=== PATIENT | female | born 1990 | race Caucasian/White ===

== ENCOUNTER 2018-10-19 08:11 | Outpatient (CLI) | payer OTHER ==
[~2018-10-19] VITALS: Ht 160 cm; Wt 67.3 kg
[2018-10-19 08:16] VITALS: Ht 160 cm; Wt 67.3 kg
[2018-10-19 08:17] VITALS: BP 132/75; PULSE 92; RESP 18
--- NOTE | 2018-10-19 08:59 | PREOPHP ---
DATE OF ADMISSION: 10/19/2018 HISTORY OF PRESENT ILLNESS: Ms. Verito Fountain is a 28-year-old 1, para 0, EDC 12/12/2018 in trauterine at 32 weeks and 2 days gestational age, presented to triage complaining of decre ased movement since last night. She had a biophysical profile which was 8/8 with an [place] of pineda roximately 8. She currently reports that she has movement. She denies any contractions, vagin al bleeding, or discharge. Her care took place with Dr. Juarez. PAST MEDICAL HISTORY: None. MEDICATIONS: vitamins. PAST SURGICAL HISTORY: None. OBSTETRIC HISTORY: Prima . GYNECOLOGIC HISTORY: 12, regular 3 to 4 days. She denies any sexually transmitted infection. Sexua lly active with 1 partner. SOCIAL HISTORY: She denies any smoking, drugs or alcohol. FAMILY HISTORY: None. REVIEW OF SYSTEMS: All within normal except history of present illness. PHYSICAL EXAMINATION: VITAL SIGNS: Blood pressure 132/75, pulse 92, respirations 18, temperature 98.4. HEENT: Within normal. LUNGS: CTA bilateral. CARDIOVASCULAR: S1, S2, regular rhythm. ABDOMEN: Gravid, nontender. Negative CVA bilateral. EXTREMITIES: Negative edema. No calf tenderness. PELVIC: Vaginal exam deferred. heart tracing category 1. Tocometer no contractions. ASSESSMENT: Intrauterine at 32 weeks and 2 days gestational age with reassuring hear t tracing/category 1 with positive movement. PLAN: Discharge home today. The patient will follow up with Dr. Juarez, has an appointment at ap proximately 4:00 this afternoon. Recommend to repeat the ultrasound and biophysical profile in 2 day s. Dictated By: MADHU REED MD ME/NTS Conf#: [id number] DID#: [id number] CC: MADHU REED MD;*EndCC*
--- NOTE | 2018-10-19 09:07 | TRIAGE ---
OB Triage Datetime Report Generated by CPN: 10/19/2018 09:07 Datetime: 10/19/2018 09:04 Labor Evaluation Duration (sec)2399: 30-40 Pattern: Normal: <= 5 Contractions in 10 Minutes Resting Tone [place]: Relaxed Contraction Comments: irritability Heart Rate FHR Baseline Rate: 135 Monitor Mode: External US Variability: Moderate 6-25 bpm Accelerations: 15X15 Decelerations: None Category: Category I Comments: reactiven nst Pain Assessment Pain Presence: None/Denies Pain Type: N/A Datetime: 10/19/2018 08:15 Assessment Type: Triage Maternal Assessment Level of Consciousness: Fully Conscious DTR's/Clonus: DTRs 2+; No Clonus Headache: Denies Blurred Vision: No Respiratory Effort: Unlabored; Regular Rhythm; Equal Expansion Breath Sounds, Left: Clear and Equal Breath Sounds, Right: Clear and Equal Nausea/Vomiting: Denies RUQ Epigastric Pain: Denies Lower Extremities Edema: None Degree: None Upper Extremities Edema: None Degree: None Facial Edema: None Fall Risk Assessment History of Falling: (0) No Secondary Diagnosis: (0) No Ambulatory Aid: (0) Bedrest/Nurse Assist IV Therapy: (0) No Gait: (0) Normal/Bedrest/Immobile Mental Status: (0) Oriented to Own Ability Fall Score: 0 Fall Risk Score Definition: No Risk: No action required Datetime: 10/19/2018 08:14 Time of Arrival: 10/19/2018 08:01 EGA: 32.2 Arrived By: Ambulatory Arrived From: Home Chief Complaint: C/O Decreased fm Movement: Decreased Contractions: Denies/Absent Rupture of Membranes: Denies Vaginal Bleeding: None Vaginal Discharge: Denies Recent Sexual Intercouse: Denies Abdominal Trauma: Not Applicable Patient Complaints: Other Time Provider Notified: 10/19/2018 08:25 Provider Notified: Initial Plan: medhatt, cassie
== END 2018-10-19 09:16 | disposition home or self-care (01) ==
LOC: OBT 08:11 → L-D 08:13 → OBT 09:16 → UNDOADMIN 09:48 → L-D 09:48
PROVIDERS: ATTEND Obstetrics & Gynecology
DX: O36.8130 Decreased fetal movements, third trimester, not applicable or unspecified (principal); Z3A.32 32 weeks gestation of pregnancy
CPT/HCPCS: 76818; G0463

== ENCOUNTER 2018-12-03 11:04 | Inpatient (IN) | payer OTHER ==
[~2018-12-03] VITALS: Ht 160 cm; Wt 71.2 kg
[2018-12-03 11:14] VITALS: BP 120/67; PULSE 78; Ht 160 cm; Wt 71.2 kg
[2018-12-03] MEDS ORDERED: PNV11TAB PO (11:15)
[2018-12-03] MEDS ORDERED: AMPICILLIN 2 GM/NS (PMX) 100 ML IV ONE (11:30)
[2018-12-03] MEDS ORDERED: OXYTOCIN 30 UNITS/LR 500 ML IV PRN ×2 (11:30→18:00)
[2018-12-03] MEDS ORDERED: METHYLERGONOVINE 0.2 MG INJ IM PRN ×2 (11:30→18:00)
[2018-12-03] MEDS ORDERED: CARBOPROST 250 MCG INJ IM PRN ×2 (11:30→18:00)
[2018-12-03] MEDS ORDERED: OXYTOCIN 30 UNITS/LR 500 ML IV SCH ×3 (11:30→17:42)
[2018-12-03] MEDS ORDERED: MISOPROSTOL 200 MCG TAB PR PRN ×2 (11:30→18:00)
[2018-12-03] MEDS ORDERED: BUTORPHANOL 2 MG INJ IV PRN ×2 (11:30)
[2018-12-03] MEDS ORDERED: LIDOCAINE 1% (MPF) 30 ML INJ INJ PRN (11:30)
[2018-12-03] MEDS: LACTATED RINGER'S 1,000 ML IV SCH (11:51)
--- NOTE | 2018-12-03 12:12 | HP ---
Date/Time of Note Date/Time of Note DATE: 12/03/18 TIME: 12:09 OB - History Hx of Present Free Text/Dictation History of present illness: 28-year-old G1 at 38 and 5 day presents with contractions since 0330. Denies lof or vb. Obstetric history: primip Gynecology: Last menstrual period approximately 03/07/18 FREDERICK: 12/12/2018 Past medical history: none Surgical history: none Family history: none Social history: negative for tobacco/all/recreational drugs Allergies: no known drug allergies Medications: vitamins Physical exam Vitals: Stable General: No apparent distress Cardiovascular: Regular rate and rhythm Pulmonary: Clear to auscultation bilaterally Abdomen: Gravid Uterus: Milton's 3600 g vertex Extremities: Nontender to palpation Psychological: Alert oriented EFM: Category I 130/mod johana/+accels/no decels labs: O + H/H 12.1/37.4 Rubella immune Hepatitis B surface antigen nonreactive HIV negative Gonorrhea chlamydia negative GBS unknown Assessment/plan: 1. Labor-admit to labor and delivery. Routine labs and vitals. Continuous e lectronic monitor and tocometer. Epidural upon patient request but she currently would like to refrain from using any sort of analgesia. 2. AZIZA-expectant. negative integrated screen. Past Family/Social History * Past Medical, Surgical, Family and Obstetric Histories reviewed from chart. OB Admission Exam Vital Signs Vital Signs Vital Signs Date Temp Pulse Resp B/P (MAP) Pulse Ox O2 O2 Flow FiO2 Time Delivery Rate 12/03/18 98.0 78 120/67 11:14 (84) KEVIN RICHEY MD Dec 03, 2018 12:12
[2018-12-03] MEDS ORDERED: AMPICILLIN 1 GM/NS (PMX) 50 ML IV SCH (15:30)
[2018-12-03] MEDS ORDERED: HYDROmorphONE 0.5 MG/0.5 ML SYG IV STA ×2 (17:00→17:13)
--- NOTE | 2018-12-03 17:48 | LDN ---
Date/Time of Note Date/Time of Note DATE: 12/03/18 TIME: 17:48 Delivery Summary Spontaneous vaginal delivery of a term female infant in OA presentation weighing 3990 g with Apgars 9/9 at 1/5 minutes respectively.. Mouth and nares bulb suctioned. Cord clamped x2 and divided between the clamps. Blood collected. Placenta delivered spontaneously and intact with vessel cord. Second-degree perineal laceration repaired with 2-0 Monocryl. Cervix without any lacerations. Fundus firm. Hemostasis noted. Anesthesia: 1% local lidocaine Analgesics: 0.6 mg IV Dilaudid Estimated blood loss: 500 mL Complications: none KEVIN RICHEY MD Dec 03, 2018 17:48
[2018-12-03] MEDS ORDERED: METHYLERGONOVINE 0.2 MG TAB PO PRN (18:00)
[2018-12-03] MEDS ORDERED: ZOLPIDEM 5 MG TAB PO PRN (18:00)
[2018-12-03] MEDS ORDERED: NACL 0.9% 3 ML SYG IV SCH (18:00)
[2018-12-03] MEDS: IBUPROFEN 600 MG TAB PO SCH ×2 (18:00→23:41)
[2018-12-03] MEDS ORDERED: MAGNESIUM HYDROXIDE 30ML CUP PO PRN (18:00)
[2018-12-03] MEDS ORDERED: WITCH HAZEL/GLYCERIN PAD PR PRN (18:00)
[2018-12-03] MEDS ORDERED: BENZOCAINE 20% 56 ML SPRAY TOP PRN (18:00)
[2018-12-03] MEDS ORDERED: DIBUCAINE 1% 30 GM OINT TOP PRN (18:00)
[2018-12-03 20:00] VITALS: BP 114/56; PULSE 73; RESP 18
[2018-12-03] MEDS: SENNA/DOCUSATE NA (8.6MG/50MG) TAB PO SCH (20:48)
[2018-12-03] MEDS: LANOLIN HPA 1 PKT TOP PRN (20:49)
[2018-12-04 04:23] VITALS: BP 98/54; PULSE 76; RESP 18
[2018-12-04] MEDS: IBUPROFEN 600 MG TAB PO SCH ×4 (05:34→23:28)
[2018-12-04] MEDS: LACTATED RINGER'S 1,000 ML IV SCH (07:00)
[2018-12-04 08:00] VITALS: BP 114/61; PULSE 64; RESP 18
--- NOTE | 2018-12-04 09:19 | PD.PPDC ---
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
--- NOTE | 2018-12-04 09:23 | DS ---
Date/Time of Note Date/Time of Note DATE: 12/04/18 TIME: 09:22 Obstetrical Discharge Record Final Diagnosis Final Diagnosis: Term delivered Vaginal Delivery Obstetrical Delivery: Spontaneous, Laceration, Repaired Condition on Discharge Physical Assessment Last Vitals: stable Voiding: Yes Bowel Movement: Yes Breast: Soft, non-tender, Filling Fundus: Firm Abdomen and Incision: soft nt Calf Tenderness: No Patient Condition: Fair MADHU REED MD Dec 04, 2018 09:23
[2018-12-04] MEDS: SENNA/DOCUSATE NA (8.6MG/50MG) TAB PO SCH ×2 (10:12→21:41)
[2018-12-04 15:40] VITALS: BP 106/52; PULSE 74; RESP 18
[2018-12-04 19:45] VITALS: BP 116/60; PULSE 71; RESP 18
[2018-12-05 03:57] VITALS: BP 96/60; PULSE 71; RESP 18
[2018-12-05] MEDS: IBUPROFEN 600 MG TAB PO SCH ×2 (05:34→12:00)
[2018-12-05] MEDS: LANOLIN HPA 1 PKT TOP PRN (05:37)
[2018-12-05 08:00] VITALS: BP 104/54; PULSE 79; RESP 18
[2018-12-05] MEDS ORDERED: MEASLES,MUMPS,RUBELLA VACCINE INJ SC* ONE (09:00)
[2018-12-05] MEDS: SENNA/DOCUSATE NA (8.6MG/50MG) TAB PO SCH (09:00)
--- NOTE | 2018-12-06 14:25 | DELSUM ---
Delivery Summary A-C Datetime Report Generated by CPN: 12/06/2018 14:25 DELIVERY PERSONNEL Manager Environmental: Huber, [place] MATERNAL INFORMATION Delivery Anesthesia: Local Medications in Delivery: pitocin, dilaudid Delivery QBL (ml): 500 Placenta Cultured: No Maternal Complications: None LABOR SUMMARY EDC: 12/12/2018 00:00 No. Babies in Womb: 1 Attempted: No Labor Anesthesia: None LABOR INFORMATION Reason for Induction: Not Applicable Onset of Labor: 12/03/2018 03:30 Complete Dilatation: 12/03/2018 15:50 Group B Beta Strep: Not Done Antibiotics # of Doses: 0 Steroids Given: None Reason Steroids Not Administered: Not Applicable MEMBRANES Membranes Rupture Method: Spontaneous Rupture of Membranes: 12/03/2018 15:06 Length of Rupture (hr): 1.82 Amniotic Fluid Color: Clear Amniotic Fluid Amount: Large Amniotic Fluid Odor: Normal STAGES OF LABOR Stage 1 hr: 12 Stage 1 min: 20 Stage 2 hr: 1 Stage 2 min: 5 Stage 3 hr: 0 Stage 3 min: 29 Total Time in Labor hr: 13 Total Time in Labor min: 54 VAGINAL DELIVERY Episiotomy: None Laceration Extension: Second Degree Laceration Type: Perineal Laceration Repair: Yes Initial Vag Sponge Count: 10 Final Vag Sponge Count: 10 Initial Vag Sharps Count: 1 Final Vag Sharps Count: 2 Sponge Count Correct: Yes; Vaginal Sweep Performed Sharps Count Correct: Yes Count Comment: 1 sharp added BABY A INFORMATION Infant Delivery Date/Time: 12/03/2018 16:55 Method of Delivery: Vaginal Born in Route : No : N/A Forceps: N/A Vacuum Extraction: N/A Shoulder Dystocia : No SHOULDER DYSTOCIA BABY A Delivery Date/Time: 12/03/2018 16:55 PRESENTATION/POSITION BABY A Presentation: Cephalic Cephalic Presentation: Vertex Vertex Position: Left Occipital Anterior Breech Presentation: N/A PLACENTA INFORMATION BABY A Placenta Delivery Time : 12/03/2018 17:24 Placenta Method of Delivery: Spontaneous Placenta Status: Delivered SCORES BABY A Heart Rate 1 min: >100 bpm Resp Effort 1 min: Good Cry Reflex Irritability 1 min: Cough/Sneeze/Pulls Away Muscle Tone 1 min: Active Motion Color 1 min: Body [place], Extremit Blue Resuscitation Effort 1 min: Tactile Stimulation SCORE 1 MIN: 9 Heart Rate 5 min: >100 bpm Resp Effort 5 min: Good Cry Reflex Irritability 5 min: Cough/Sneeze/Pulls Away Muscle Tone 5 min: Active Motion Color 5 min: Body [place], Extremit Blue SCORE 5 MIN: 9 INFORMATION BABY A Gestational Age at Delivery: 38.5 Gestational Status: Early Term- 37- 38.6 Weeks Outcome : Liveborn, with signs of life Condition : Stable Infant Sex: Female IDENTIFICATION/MEDS BABY A ID Band Number: [id number] ID Band Location: Right Leg; Left Arm Sensor Applied: Yes Sensor Number: [id number] Sensor Location : Cord Clamp WEIGHT/LENGTH BABY A Infant Birthweight (gm): 3990 Infant Weight (lb): 8 Weight (oz): 13 Length (in): 21.00 Infant Length (cm): 53.34 CORD INFORMATION BABY A No. Cord Vessels: 3 Nuchal Cord : N/A Cord Blood Taken: Yes Suction: Mouth; Nose ASSESSMENT BABY A Infant Complications: None Physical Findings at Delivery: Within Normal Limits Infant Respirations: Appears Normal Speech And Language Specialist/ALS Called : No Infant Care By: dioni buchanan Transferred To: Remains with Mother
== END 2018-12-05 13:05 | disposition home or self-care (01) | DRG 807 ==
LOC: OBT 11:04 → L-D 11:05 → OBT 11:20 → L-D 15:52 → PP1 20:04
PROVIDERS: ADMIT Obstetrics & Gynecology; ATTEND Obstetrics & Gynecology
PROC: 10E0XZZ Delivery of Products of Conception, External Approach (ICD-10-PCS; principal; 2018-12-03)
PROC: 0KQM0ZZ Repair Perineum Muscle, Open Approach (ICD-10-PCS; 2018-12-03)
DX: O70.1 Second degree perineal laceration during delivery (principal); Z37.0 Single live birth; Z3A.38 38 weeks gestation of pregnancy
CPT/HCPCS: 85014; 85018; 85025; 85610; 85730; 86592; 86850; 86900; 86901; 87340; G0463; J1170; J2590; J7120